=== PATIENT | male | born 1970 | race American Indian/Alaskan Native ===

== ENCOUNTER 2019-07-14 23:27 | Inpatient (IN) | payer OTHER ==
[~2019-07-14] VITALS: Ht 170.2 cm; Wt 86.2 kg
[2019-07-15] MEDS ORDERED: TIOT185 IH (00:04)
[2019-07-15] MEDS ORDERED: ADV250 IH (00:10)
[2019-07-15] MEDS ORDERED: ARIP10TA8 PO (00:10)
[2019-07-15] MEDS ORDERED: MONT10TA21 PO (00:10)
[2019-07-15] MEDS ORDERED: OLAN5TAB5 SL (00:10)
[2019-07-15] MEDS ORDERED: ALBU2.5V2 NEB (00:10)
[2019-07-15] MEDS ORDERED: ONDANSETRON HCL 4 MG/2 ML VIAL IVP ONE (00:15)
[2019-07-15] MEDS ORDERED: SODIUM CHLORIDE 0.9% 1,000 ML IV ONE ×3 (00:15→15:45)
[2019-07-15] MEDS ORDERED: IOVERSOL 350 MG/ML 100 ML VIAL ONE (00:29)
[2019-07-15] MEDS ORDERED: SODIUM CHLORIDE 0.9% 100 ML ONE (00:29)
[2019-07-15] MEDS ORDERED: ACETAMINOPHEN 500 MG TABLET PO ONE (00:30)
[2019-07-15 00:39] LABS: EOSINOPHILS % (AUTO) 0 % (1.0-6.0); LYMPHOCYTES # (AUTO) 0.8 K/uL (1.0-4.8)
[2019-07-15 00:41] LABS: APPEARANCE,URINE CLEAR (CLEAR); BILIRUBIN,URINE NEGATIVE (NEGATIVE); GLUCOSE, URINE (UA) NEGATIVE (NEGATIVE); KETONES,URINE NEGATIVE (NEGATIVE); LEUKOCYTE ESTERASE ,URINE NEGATIVE (NEGATIVE); NITRATE,URINE NEGATIVE (NEGATIVE); OCCULT BLOOD,URINE NEGATIVE (NEGATIVE); PH,URINE 5.5 (5.0-8.0); PROTEIN,URINE TRACE (NEGATIVE); UROBILINOGEN,URINE 0.2 mg/dL (<=1.0)
[2019-07-15 00:42] LABS: BASOPHILS % (AUTO) 0.6 % (0.0-2.0); HEMATOCRIT 41.3 % (41-53); HEMOGLOBIN 13.8 g/dL (13.5-17.5); LYMPHOCYTES % (AUTO) 16.4 % (22.0-44.0); MEAN CORPUSCULAR HEMOGLOBIN 28.5 pg (26.0-34.0); MEAN CORPUSCULAR HGB CONC 33.4 G/dL (31.0-37.0); MEAN CORPUSCULAR VOLUME 86 fL (80-100); MONOCYTES % (AUTO) 20.3 % (2.0-9.0); NEUTROPHILS # (AUTO) 3.2 K/uL (1.8-7.7); NEUTROPHILS % (AUTO) 62.7 % (40.0-70.0); RED BLOOD CELL COUNT(AUTO) 4.83 MIL/uL (4.50-5.90); RED CELL DISTRIBUTION WIDTH 14.1 % (11.5-14.5)
[2019-07-15 00:47] LABS: CALCIUM, TOTAL 9.3 mg/dL (8.8-10.5); CREATININE 1.5 mg/dL (0.60-1.30); POTASSIUM 3.6 mmol/L (3.5-5.1)
[2019-07-15 00:53] LABS: ALBUMIN 3.6 g/dL (3.4-5.0); BILIRUBIN,TOTAL 0.4 mg/dL (0.1-1.0); PLATELET COUNT (AUTO) 113 K/uL (150-450); PLATELET MORPHOLOGY COMMENT GIANT PLTS PRESENT; TOTAL PROTEIN, SERUM 8.3 g/dL (6.4-8.2)
[2019-07-15] MEDS ORDERED: MORPHINE SULFATE 2 MG/ML SYRINGE IVP ONE (01:45)
[2019-07-15] MEDS ORDERED: SODIUM CHLORIDE 0.9% 2,200 ML IV ONE (03:30)
[2019-07-15] MEDS ORDERED: 0.9% SODIUM CHLORIDE 10 ML SYRINGE IVP PRN (03:30)
[2019-07-15] MEDS ORDERED: ONDANSETRON HCL 4 MG/2 ML VIAL IVP PRN ×3 (03:30→15:45)
[2019-07-15 04:10] LABS: INFLUENZA TYPE A POSITIVE FOR TYPE A (NEGATIVE)
[2019-07-15 04:11] LABS: INFLUENZA TYPE B NEGATIVE FOR TYPE B (NEGATIVE)
[2019-07-15 04:42] VITALS: BP 127/74
[2019-07-15] MEDS: ACETAMINOPHEN 325 MG TABLET PO PRN ×3 (07:45→20:16)
[2019-07-15 07:48] VITALS: BP 134/80
[2019-07-15] MEDS ORDERED: OSELTAMIVIR PHOSPHATE 75 MG CAPSULE PO ONE (14:45)
[2019-07-15 15:20] VITALS: BP 123/86
[2019-07-15] MEDS ORDERED: ALBUTEROL SULFATE 2.5 MG/0.5 ML NEB SOLUTION NEB PRN ×2 (15:45)
[2019-07-15] MEDS ORDERED: MAGNESIUM HYDROXIDE SUSPENSION 30 ML UDCUP PO PRN (15:45)
[2019-07-15] MEDS ORDERED: IPRATROPIUM BROMIDE 0.5 MG/2.5 ML NEB SOLUTION NEB PRN ×2 (15:45)
[2019-07-15] MEDS ORDERED: BISACODYL 10 MG RECTAL RECTAL SUPPOSITORY PR PRN (15:45)
[2019-07-15] MEDS: BENZONATATE 100 MG CAPSULE PO SCH ×2 (16:02→20:15)
[2019-07-15] MEDS: METOCLOPRAMIDE HCL 5 MG/ML 2 ML VIAL IVP PRN (16:05)
[2019-07-15] MEDS: HEPARIN SODIUM,PORCINE 5,000 UNITS/ML VIAL SQ SCH (16:06)
[2019-07-15] MEDS: LEVOFLOXACIN 750 MG/D5% WATER 150 ML IV SCH (16:34)
[2019-07-15 20:00] VITALS: BP 112/59
[2019-07-15] MEDS: IPRATROPIUM BROMIDE 0.5 MG/2.5 ML NEB SOLUTION NEB SCH (20:00)
[2019-07-15] MEDS: ALBUTEROL SULFATE 2.5 MG/0.5 ML NEB SOLUTION NEB SCH (20:00)
[2019-07-15] MEDS: DOCUSATE SODIUM 100 MG CAPSULE PO SCH (20:03)
[2019-07-15] MEDS: GuaiFENesin SR 600 MG ER TABLET PO SCH (20:15)
[2019-07-15] MEDS: OSELTAMIVIR PHOSPHATE 75 MG CAPSULE PO SCH (20:15)
[2019-07-16] MEDS: HEPARIN SODIUM,PORCINE 5,000 UNITS/ML VIAL SQ SCH ×3 (00:06→16:30)
[2019-07-16] MEDS: IPRATROPIUM BROMIDE 0.5 MG/2.5 ML NEB SOLUTION NEB SCH ×2 (01:47→02:24)
[2019-07-16] MEDS: ALBUTEROL SULFATE 2.5 MG/0.5 ML NEB SOLUTION NEB SCH ×2 (01:47→02:25)
[2019-07-16] MEDS: MORPHINE SULFATE 2 MG/ML SYRINGE IVP PRN ×3 (01:57→14:33)
[2019-07-16 04:00] VITALS: BP 116/70
[2019-07-16] MEDS: ACETAMINOPHEN 325 MG TABLET PO PRN (04:12)
[2019-07-16] MEDS: METOCLOPRAMIDE HCL 5 MG/ML 2 ML VIAL IVP PRN (06:02)
[2019-07-16 08:04] LABS: BASOPHILS % (AUTO) 0.5 % (0.0-2.0); EOSINOPHILS % (AUTO) 0 % (1.0-6.0); HEMATOCRIT 36.3 % (41-53); HEMOGLOBIN 12.4 g/dL (13.5-17.5); LYMPHOCYTES % (AUTO) 23.8 % (22.0-44.0); MEAN CORPUSCULAR VOLUME 85 fL (80-100); MONOCYTES # (AUTO) 0.7 K/uL (0.1-1.0); MONOCYTES % (AUTO) 16.2 % (2.0-9.0); NEUTROPHILS # (AUTO) 2.5 K/uL (1.8-7.7); NEUTROPHILS % (AUTO) 59.5 % (40.0-70.0); PLATELET COUNT (AUTO) 97 K/uL (150-450); RED BLOOD CELL COUNT(AUTO) 4.26 MIL/uL (4.50-5.90); RED CELL DISTRIBUTION WIDTH 13.9 % (11.5-14.5)
[2019-07-16 08:12] LABS: CALCIUM, TOTAL 8.1 mg/dL (8.8-10.5); CREATININE 1.29 mg/dL (0.60-1.30); POTASSIUM 3.1 mmol/L (3.5-5.1)
[2019-07-16] MEDS: BENZONATATE 100 MG CAPSULE PO SCH ×3 (08:41→20:40)
[2019-07-16] MEDS: OSELTAMIVIR PHOSPHATE 75 MG CAPSULE PO SCH ×2 (08:41→20:40)
[2019-07-16] MEDS: PANTOPRAZOLE SODIUM 40 MG DR TABLET PO SCH (08:41)
[2019-07-16] MEDS: DOCUSATE SODIUM 100 MG CAPSULE PO SCH ×2 (08:41→20:40)
[2019-07-16] MEDS: ARIPiprazole 10 MG TABLET PO SCH ×3 (08:42→20:40)
[2019-07-16] MEDS: OLANZapine 10 MG TABLET PO SCH ×2 (08:42→20:40)
[2019-07-16] MEDS: GuaiFENesin SR 600 MG ER TABLET PO SCH ×2 (08:42→20:40)
[2019-07-16] MEDS ORDERED: POTASSIUM CHL 10 MEQ/WATER 50 ML IV PRN (11:00)
[2019-07-16] MEDS: POTASSIUM CHLORIDE 20 MEQ ER TABLET PO PRN (14:34)
[2019-07-16] MEDS ORDERED: ONDANSETRON HCL 4 MG/2 ML VIAL IVP PRN (15:45)
[2019-07-16] MEDS: LEVOFLOXACIN 750 MG/D5% WATER 150 ML IV SCH (16:30)
[2019-07-16 19:24] VITALS: BP 114/74
[2019-07-17 00:11] VITALS: BP 129/83
[2019-07-17] MEDS: ACETAMINOPHEN 325 MG TABLET PO PRN ×2 (00:18→08:21)
[2019-07-17 03:28] VITALS: BP 129/61
[2019-07-17 07:53] VITALS: BP 112/72
[2019-07-17 07:54] LABS: BASOPHILS % (AUTO) 0.2 % (0.0-2.0); EOSINOPHILS % (AUTO) 0.1 % (1.0-6.0); HEMATOCRIT 37.4 % (41-53); HEMOGLOBIN 12.8 g/dL (13.5-17.5); LYMPHOCYTES # (AUTO) 0.9 K/uL (1.0-4.8); LYMPHOCYTES % (AUTO) 31.4 % (22.0-44.0); MEAN CORPUSCULAR HEMOGLOBIN 29.1 pg (26.0-34.0); MEAN CORPUSCULAR HGB CONC 34.2 G/dL (31.0-37.0); MEAN CORPUSCULAR VOLUME 85 fL (80-100); MONOCYTES # (AUTO) 0.3 K/uL (0.1-1.0); MONOCYTES % (AUTO) 11.2 % (2.0-9.0); NEUTROPHILS # (AUTO) 1.6 K/uL (1.8-7.7); NEUTROPHILS % (AUTO) 57.1 % (40.0-70.0); PLATELET COUNT (AUTO) 88 K/uL (150-450); RED BLOOD CELL COUNT(AUTO) 4.38 MIL/uL (4.50-5.90); RED CELL DISTRIBUTION WIDTH 13.9 % (11.5-14.5)
[2019-07-17] MEDS: IPRATROPIUM BROMIDE 0.5 MG/2.5 ML NEB SOLUTION NEB SCH ×3 (08:00→20:01)
[2019-07-17] MEDS: HEPARIN SODIUM,PORCINE 5,000 UNITS/ML VIAL SQ SCH ×3 (08:00→15:01)
[2019-07-17] MEDS: ALBUTEROL SULFATE 2.5 MG/0.5 ML NEB SOLUTION NEB SCH ×3 (08:00→20:01)
[2019-07-17 08:01] LABS: PLATELET MORPHOLOGY COMMENT GIANT PLTS PRESENT
[2019-07-17 08:07] LABS: CALCIUM, TOTAL 8.4 mg/dL (8.8-10.5); CREATININE 1.34 mg/dL (0.60-1.30); POTASSIUM 3.7 mmol/L (3.5-5.1)
[2019-07-17] MEDS: PANTOPRAZOLE SODIUM 40 MG DR TABLET PO SCH (08:21)
[2019-07-17] MEDS: OLANZapine 10 MG TABLET PO SCH ×2 (08:21→20:26)
[2019-07-17] MEDS: BENZONATATE 100 MG CAPSULE PO SCH ×3 (08:22→20:25)
[2019-07-17] MEDS: OSELTAMIVIR PHOSPHATE 75 MG CAPSULE PO SCH ×2 (08:22→20:26)
[2019-07-17] MEDS: GuaiFENesin SR 600 MG ER TABLET PO SCH ×2 (08:22→20:26)
[2019-07-17] MEDS: ARIPiprazole 10 MG TABLET PO SCH ×3 (08:23→20:25)
[2019-07-17] MEDS: DOCUSATE SODIUM 100 MG CAPSULE PO SCH ×2 (08:23→20:26)
[2019-07-17] MEDS ORDERED: DOXYCYCLINE HYCLATE 100 MG CAPSULE PO SCH (12:30)
[2019-07-17] MEDS: LEVOFLOXACIN 750 MG/D5% WATER 150 ML IV SCH (15:03)
[2019-07-17] MEDS: HYDROCODONE/ACETAMINOPHEN 5-325 MG TABLET PO PRN (15:08)
[2019-07-17 16:26] VITALS: BP 101/58
[2019-07-17] MEDS ORDERED: SODIUM CHLORIDE 0.9% 1,000 ML ONE (17:31)
[2019-07-17 20:29] VITALS: BP 116/62
[2019-07-17 23:30] VITALS: BP 141/77
[2019-07-18] MEDS: HEPARIN SODIUM,PORCINE 5,000 UNITS/ML VIAL SQ SCH ×3 (00:21→14:53)
[2019-07-18] MEDS: ACETAMINOPHEN 325 MG TABLET PO PRN ×2 (00:22→08:51)
[2019-07-18] MEDS: IPRATROPIUM BROMIDE 0.5 MG/2.5 ML NEB SOLUTION NEB SCH ×4 (02:00→20:00)
[2019-07-18] MEDS: ALBUTEROL SULFATE 2.5 MG/0.5 ML NEB SOLUTION NEB SCH ×4 (02:01→20:00)
[2019-07-18 07:47] LABS: BASOPHILS % (AUTO) 0.5 % (0.0-2.0); EOSINOPHILS % (AUTO) 0 % (1.0-6.0); HEMATOCRIT 38.1 % (41-53); HEMOGLOBIN 12.9 g/dL (13.5-17.5); LYMPHOCYTES # (AUTO) 0.7 K/uL (1.0-4.8); LYMPHOCYTES % (AUTO) 25.5 % (22.0-44.0); MEAN CORPUSCULAR HEMOGLOBIN 28.9 pg (26.0-34.0); MEAN CORPUSCULAR HGB CONC 33.9 G/dL (31.0-37.0); MEAN CORPUSCULAR VOLUME 85 fL (80-100); MONOCYTES # (AUTO) 0.3 K/uL (0.1-1.0); MONOCYTES % (AUTO) 10.1 % (2.0-9.0); NEUTROPHILS # (AUTO) 1.7 K/uL (1.8-7.7); NEUTROPHILS % (AUTO) 63.9 % (40.0-70.0); PLATELET COUNT (AUTO) 81 K/uL (150-450); RED BLOOD CELL COUNT(AUTO) 4.47 MIL/uL (4.50-5.90); RED CELL DISTRIBUTION WIDTH 14.1 % (11.5-14.5)
[2019-07-18 08:14] LABS: BILIRUBIN,TOTAL 0.4 mg/dL (0.1-1.0); CALCIUM, TOTAL 8.5 mg/dL (8.8-10.5); CREATININE 1.37 mg/dL (0.60-1.30); POTASSIUM 3.3 mmol/L (3.5-5.1); TOTAL PROTEIN, SERUM 7.2 g/dL (6.4-8.2)
[2019-07-18] MEDS: OLANZapine 10 MG TABLET PO SCH ×2 (08:50→20:55)
[2019-07-18] MEDS: PANTOPRAZOLE SODIUM 40 MG DR TABLET PO SCH (08:50)
[2019-07-18] MEDS: GuaiFENesin SR 600 MG ER TABLET PO SCH ×2 (08:50→20:56)
[2019-07-18] MEDS: OSELTAMIVIR PHOSPHATE 75 MG CAPSULE PO SCH ×2 (08:50→20:56)
[2019-07-18] MEDS: ARIPiprazole 10 MG TABLET PO SCH ×3 (08:51→20:55)
[2019-07-18] MEDS: BENZONATATE 100 MG CAPSULE PO SCH ×3 (08:51→20:56)
[2019-07-18] MEDS: POTASSIUM CHLORIDE 20 MEQ ER TABLET PO PRN (08:51)
[2019-07-18] MEDS: DOCUSATE SODIUM 100 MG CAPSULE PO SCH ×2 (08:54→20:56)
[2019-07-18] MEDS ORDERED: SODIUM CHLORIDE 0.9% 1,000 ML IV ONE (10:00)
[2019-07-18] MEDS ORDERED: *CLINICAL-LEVOFLOXACIN IVPB DOSING CLINICAL ONE (10:00)
[2019-07-18] MEDS ORDERED: LEVOFLOXACIN 750 MG/D5% WATER 150 ML IV SCH (16:00)
[2019-07-18 16:02] VITALS: BP 117/63
[2019-07-18 19:42] VITALS: BP 126/76
[2019-07-19] MEDS: HEPARIN SODIUM,PORCINE 5,000 UNITS/ML VIAL SQ SCH ×3 (00:07→16:00)
[2019-07-19] MEDS: ZOLPIDEM TARTRATE 5 MG TABLET PO PRN ×2 (01:06→23:54)
[2019-07-19] MEDS: ALBUTEROL SULFATE 2.5 MG/0.5 ML NEB SOLUTION NEB SCH ×4 (02:00→20:00)
[2019-07-19] MEDS: IPRATROPIUM BROMIDE 0.5 MG/2.5 ML NEB SOLUTION NEB SCH ×4 (02:00→20:00)
[2019-07-19 04:23] VITALS: BP 130/84
[2019-07-19] MEDS ORDERED: SODIUM CHLORIDE 0.9% 500 ML IV ONE (06:44)
[2019-07-19] MEDS: MORPHINE SULFATE 2 MG/ML SYRINGE IVP PRN (06:56)
[2019-07-19 07:52] LABS: BASOPHILS % (AUTO) 0.1 % (0.0-2.0); EOSINOPHILS % (AUTO) 0 % (1.0-6.0); HEMATOCRIT 37.9 % (41-53); LYMPHOCYTES # (AUTO) 1.1 K/uL (1.0-4.8); LYMPHOCYTES % (AUTO) 35.9 % (22.0-44.0); MEAN CORPUSCULAR HEMOGLOBIN 28.8 pg (26.0-34.0); MEAN CORPUSCULAR HGB CONC 34.4 G/dL (31.0-37.0); MEAN CORPUSCULAR VOLUME 84 fL (80-100); MONOCYTES # (AUTO) 0.5 K/uL (0.1-1.0); MONOCYTES % (AUTO) 15.7 % (2.0-9.0); NEUTROPHILS # (AUTO) 1.4 K/uL (1.8-7.7); NEUTROPHILS % (AUTO) 48.3 % (40.0-70.0); PLATELET COUNT (AUTO) 88 K/uL (150-450); RED BLOOD CELL COUNT(AUTO) 4.52 MIL/uL (4.50-5.90); RED CELL DISTRIBUTION WIDTH 14.3 % (11.5-14.5)
[2019-07-19 07:59] LABS: PLATELET MORPHOLOGY COMMENT GIANT PLTS PRESENT
[2019-07-19 08:09] LABS: ANION GAP 10 mmol/L (8-16); CALCIUM, TOTAL 8.8 mg/dL (8.8-10.5); CARBON DIOXIDE 25 mmol/L (22-29); CHLORIDE 106 mmol/L (98-107); CREATININE 1.18 mg/dL (0.60-1.30); GLOMERULAR FILTR. RATE CALC > 60 mL/min (>60); GLUCOSE,RANDOM 92 mg/dL (70-110); POTASSIUM 3.7 mmol/L (3.5-5.1); SODIUM SERUM 141 mmol/L (136-145); UREA NITROGEN, BLOOD 8 mg/dL (7-18)
[2019-07-19 08:16] VITALS: BP 133/72
[2019-07-19] MEDS: DOCUSATE SODIUM 100 MG CAPSULE PO SCH ×2 (13:09→20:06)
[2019-07-19] MEDS: GuaiFENesin SR 600 MG ER TABLET PO SCH ×2 (13:10→20:06)
[2019-07-19] MEDS: OLANZapine 10 MG TABLET PO SCH ×2 (13:10→20:06)
[2019-07-19] MEDS: BENZONATATE 100 MG CAPSULE PO SCH ×3 (13:10→20:06)
[2019-07-19] MEDS: OSELTAMIVIR PHOSPHATE 75 MG CAPSULE PO SCH ×2 (13:10→20:06)
[2019-07-19] MEDS: PANTOPRAZOLE SODIUM 40 MG DR TABLET PO SCH (13:10)
[2019-07-19] MEDS: ARIPiprazole 10 MG TABLET PO SCH ×3 (13:11→20:06)
[2019-07-19] MEDS ORDERED: LORazepam 2 MG/ML VIAL IVP PRN (14:15)
[2019-07-19 16:07] VITALS: BP 143/78
[2019-07-19 20:21] VITALS: BP 134/85
[2019-07-19] MEDS: LORazepam 2 MG/ML VIAL IM PRN (23:54)
[2019-07-20] MEDS: ALBUTEROL SULFATE 2.5 MG/0.5 ML NEB SOLUTION NEB SCH ×4 (02:00→20:52)
[2019-07-20] MEDS: IPRATROPIUM BROMIDE 0.5 MG/2.5 ML NEB SOLUTION NEB SCH ×4 (02:00→20:52)
[2019-07-20] MEDS: HALOPERIDOL LACTATE 5 MG/ML VIAL IM PRN (02:11)
[2019-07-20] MEDS ORDERED: LORazepam 2 MG/ML VIAL IM PRN (06:15)
[2019-07-20] MEDS: GuaiFENesin SR 600 MG ER TABLET PO SCH ×2 (11:26→20:18)
[2019-07-20] MEDS: DOCUSATE SODIUM 100 MG CAPSULE PO SCH ×2 (11:26→20:18)
[2019-07-20] MEDS: OLANZapine 10 MG TABLET PO SCH ×2 (11:26→20:18)
[2019-07-20] MEDS: PANTOPRAZOLE SODIUM 40 MG DR TABLET PO SCH (11:26)
[2019-07-20] MEDS: BENZONATATE 100 MG CAPSULE PO SCH ×3 (11:27→20:18)
[2019-07-20] MEDS: ARIPiprazole 10 MG TABLET PO SCH ×3 (11:27→20:17)
[2019-07-20] MEDS: HEPARIN SODIUM,PORCINE 5,000 UNITS/ML VIAL SQ SCH ×3 (11:27→16:00)
[2019-07-20] MEDS: OSELTAMIVIR PHOSPHATE 75 MG CAPSULE PO SCH (11:27)
[2019-07-20] MEDS: HYDROCODONE/ACETAMINOPHEN 5-325 MG TABLET PO PRN (11:46)
[2019-07-20 15:05] VITALS: BP 113/65
[2019-07-20 20:01] VITALS: BP 110/67
[2019-07-20] MEDS: TraZODone HCL 100 MG TABLET PO SCH (20:18)
[2019-07-21] MEDS: ALBUTEROL SULFATE 2.5 MG/0.5 ML NEB SOLUTION NEB SCH ×4 (02:36→20:00)
[2019-07-21] MEDS: IPRATROPIUM BROMIDE 0.5 MG/2.5 ML NEB SOLUTION NEB SCH ×4 (02:36→20:00)
[2019-07-21] MEDS: BENZONATATE 100 MG CAPSULE PO SCH ×3 (07:52→20:16)
[2019-07-21] MEDS: ARIPiprazole 10 MG TABLET PO SCH ×3 (07:52→20:16)
[2019-07-21] MEDS: PANTOPRAZOLE SODIUM 40 MG DR TABLET PO SCH (07:52)
[2019-07-21] MEDS: HEPARIN SODIUM,PORCINE 5,000 UNITS/ML VIAL SQ SCH ×4 (07:52→23:56)
[2019-07-21] MEDS: GuaiFENesin SR 600 MG ER TABLET PO SCH ×2 (07:52→20:16)
[2019-07-21] MEDS: DOCUSATE SODIUM 100 MG CAPSULE PO SCH ×2 (07:52→20:16)
[2019-07-21] MEDS: OLANZapine 10 MG TABLET PO SCH ×2 (07:52→20:16)
[2019-07-21 08:28] VITALS: BP 119/75
[2019-07-21] MEDS: OSELTAMIVIR PHOSPHATE 75 MG CAPSULE PO SCH ×2 (12:22→20:16)
[2019-07-21 16:00] VITALS: BP 114/68
[2019-07-21 19:55] VITALS: BP 115/60
[2019-07-21] MEDS: TraZODone HCL 100 MG TABLET PO SCH (20:16)
[2019-07-22] MEDS: IPRATROPIUM BROMIDE 0.5 MG/2.5 ML NEB SOLUTION NEB SCH ×4 (02:00→20:00)
[2019-07-22] MEDS: ALBUTEROL SULFATE 2.5 MG/0.5 ML NEB SOLUTION NEB SCH ×4 (02:00→20:00)
[2019-07-22 04:13] VITALS: BP 128/88
[2019-07-22 07:55] VITALS: BP 97/63
[2019-07-22] MEDS: HEPARIN SODIUM,PORCINE 5,000 UNITS/ML VIAL SQ SCH ×2 (09:07→16:49)
[2019-07-22] MEDS: ARIPiprazole 10 MG TABLET PO SCH ×3 (09:07→21:22)
[2019-07-22] MEDS: BENZONATATE 100 MG CAPSULE PO SCH ×3 (09:07→21:22)
[2019-07-22] MEDS: DOCUSATE SODIUM 100 MG CAPSULE PO SCH ×2 (09:07→21:22)
[2019-07-22] MEDS: GuaiFENesin SR 600 MG ER TABLET PO SCH ×2 (09:08→21:22)
[2019-07-22] MEDS: OLANZapine 10 MG TABLET PO SCH ×2 (09:08→21:21)
[2019-07-22] MEDS: PANTOPRAZOLE SODIUM 40 MG DR TABLET PO SCH (09:08)
[2019-07-22] MEDS: OSELTAMIVIR PHOSPHATE 75 MG CAPSULE PO SCH ×2 (10:12→21:22)
[2019-07-22 15:43] VITALS: BP 117/75
[2019-07-22 20:20] VITALS: BP 125/75
[2019-07-22] MEDS: HYDROCODONE/ACETAMINOPHEN 5-325 MG TABLET PO PRN (20:28)
[2019-07-22] MEDS: TraZODone HCL 100 MG TABLET PO SCH (21:22)
[2019-07-23] MEDS: HEPARIN SODIUM,PORCINE 5,000 UNITS/ML VIAL SQ SCH ×4 (00:12→23:48)
[2019-07-23] MEDS: ALBUTEROL SULFATE 2.5 MG/0.5 ML NEB SOLUTION NEB SCH ×4 (02:00→20:00)
[2019-07-23] MEDS: IPRATROPIUM BROMIDE 0.5 MG/2.5 ML NEB SOLUTION NEB SCH ×4 (02:00→20:00)
[2019-07-23 05:00] VITALS: BP 124/77
[2019-07-23 07:23] VITALS: BP 120/56
[2019-07-23] MEDS: BENZONATATE 100 MG CAPSULE PO SCH ×3 (08:09→20:48)
[2019-07-23] MEDS: OLANZapine 10 MG TABLET PO SCH ×2 (08:09→20:48)
[2019-07-23] MEDS: ARIPiprazole 10 MG TABLET PO SCH ×3 (08:09→20:49)
[2019-07-23] MEDS: GuaiFENesin SR 600 MG ER TABLET PO SCH ×2 (08:09→20:48)
[2019-07-23] MEDS: DOCUSATE SODIUM 100 MG CAPSULE PO SCH ×2 (08:09→20:48)
[2019-07-23] MEDS: PANTOPRAZOLE SODIUM 40 MG DR TABLET PO SCH (08:10)
[2019-07-23] MEDS: OSELTAMIVIR PHOSPHATE 75 MG CAPSULE PO SCH ×2 (11:05→20:49)
[2019-07-23 15:44] VITALS: BP 124/76
[2019-07-23 19:47] VITALS: BP 127/83
[2019-07-23] MEDS: TraZODone HCL 100 MG TABLET PO SCH (20:48)
[2019-07-24] MEDS: ALBUTEROL SULFATE 2.5 MG/0.5 ML NEB SOLUTION NEB SCH ×4 (02:00→20:00)
[2019-07-24] MEDS: IPRATROPIUM BROMIDE 0.5 MG/2.5 ML NEB SOLUTION NEB SCH ×4 (02:00→20:00)
[2019-07-24 04:00] VITALS: BP 131/91
[2019-07-24] MEDS: LORazepam 2 MG/ML VIAL IM PRN (04:33)
[2019-07-24] MEDS: HALOPERIDOL LACTATE 5 MG/ML VIAL IM PRN (06:52)
[2019-07-24 08:07] VITALS: BP 125/92
[2019-07-24] MEDS: BENZONATATE 100 MG CAPSULE PO SCH ×3 (08:23→21:12)
[2019-07-24] MEDS: HEPARIN SODIUM,PORCINE 5,000 UNITS/ML VIAL SQ SCH ×3 (08:23→23:13)
[2019-07-24] MEDS: OSELTAMIVIR PHOSPHATE 75 MG CAPSULE PO SCH ×2 (08:23→21:12)
[2019-07-24] MEDS: OLANZapine 10 MG TABLET PO SCH (08:23)
[2019-07-24] MEDS: DOCUSATE SODIUM 100 MG CAPSULE PO SCH ×2 (08:23→21:12)
[2019-07-24] MEDS: ARIPiprazole 10 MG TABLET PO SCH (08:23)
[2019-07-24] MEDS: GuaiFENesin SR 600 MG ER TABLET PO SCH ×2 (08:23→21:12)
[2019-07-24] MEDS: PANTOPRAZOLE SODIUM 40 MG DR TABLET PO SCH (08:27)
[2019-07-24 15:22] VITALS: BP 106/73
[2019-07-24 20:17] VITALS: BP 150/94
[2019-07-24] MEDS: TraZODone HCL 100 MG TABLET PO SCH (21:12)
[2019-07-24] MEDS: OLANZapine 7.5 MG TABLET PO SCH (21:13)
[2019-07-25] MEDS: IPRATROPIUM BROMIDE 0.5 MG/2.5 ML NEB SOLUTION NEB SCH ×4 (02:00→20:00)
[2019-07-25] MEDS: ALBUTEROL SULFATE 2.5 MG/0.5 ML NEB SOLUTION NEB SCH ×4 (02:00→20:00)
[2019-07-25 04:20] VITALS: BP 133/76
[2019-07-25 07:29] VITALS: BP 130/62
[2019-07-25] MEDS: HEPARIN SODIUM,PORCINE 5,000 UNITS/ML VIAL SQ SCH ×3 (08:00→23:05)
[2019-07-25] MEDS: GuaiFENesin SR 600 MG ER TABLET PO SCH ×2 (08:55→20:43)
[2019-07-25] MEDS: DOCUSATE SODIUM 100 MG CAPSULE PO SCH ×2 (08:56→20:43)
[2019-07-25] MEDS: OLANZapine 7.5 MG TABLET PO SCH ×2 (08:56→20:44)
[2019-07-25] MEDS: OSELTAMIVIR PHOSPHATE 75 MG CAPSULE PO SCH ×2 (08:56→20:44)
[2019-07-25] MEDS: BENZONATATE 100 MG CAPSULE PO SCH ×3 (08:56→20:44)
[2019-07-25] MEDS: PANTOPRAZOLE SODIUM 40 MG DR TABLET PO SCH (08:56)
[2019-07-25 15:24] VITALS: BP 103/56
[2019-07-25] MEDS: TraZODone HCL 100 MG TABLET PO SCH (20:44)
[2019-07-25 20:50] VITALS: BP 108/66
[2019-07-26] MEDS: ALBUTEROL SULFATE 2.5 MG/0.5 ML NEB SOLUTION NEB SCH ×4 (02:00→20:00)
[2019-07-26] MEDS: IPRATROPIUM BROMIDE 0.5 MG/2.5 ML NEB SOLUTION NEB SCH ×4 (02:00→20:00)
[2019-07-26 04:42] VITALS: BP 116/56
[2019-07-26] MEDS: HEPARIN SODIUM,PORCINE 5,000 UNITS/ML VIAL SQ SCH ×3 (08:00→15:21)
[2019-07-26 08:31] VITALS: BP 113/88
[2019-07-26] MEDS: DOCUSATE SODIUM 100 MG CAPSULE PO SCH ×2 (08:44→20:47)
[2019-07-26] MEDS: GuaiFENesin SR 600 MG ER TABLET PO SCH ×2 (08:44→20:46)
[2019-07-26] MEDS: OSELTAMIVIR PHOSPHATE 75 MG CAPSULE PO SCH ×2 (08:44→20:46)
[2019-07-26] MEDS: OLANZapine 7.5 MG TABLET PO SCH ×2 (08:44→20:47)
[2019-07-26] MEDS: PANTOPRAZOLE SODIUM 40 MG DR TABLET PO SCH (08:44)
[2019-07-26] MEDS: BENZONATATE 100 MG CAPSULE PO SCH ×3 (08:44→20:46)
[2019-07-26 09:11] LABS: BASOPHILS % (AUTO) 0.9 % (0.0-2.0); EOSINOPHILS % (AUTO) 0.5 % (1.0-6.0); LYMPHOCYTES % (AUTO) 27.8 % (22.0-44.0); MEAN CORPUSCULAR HEMOGLOBIN 29.2 pg (26.0-34.0); MEAN CORPUSCULAR HGB CONC 34.1 G/dL (31.0-37.0); MEAN CORPUSCULAR VOLUME 86 fL (80-100); MONOCYTES # (AUTO) 0.6 K/uL (0.1-1.0); MONOCYTES % (AUTO) 8.6 % (2.0-9.0); NEUTROPHILS # (AUTO) 4.5 K/uL (1.8-7.7); NEUTROPHILS % (AUTO) 62.2 % (40.0-70.0); PLATELET COUNT (AUTO) 318 K/uL (150-450); RED BLOOD CELL COUNT(AUTO) 4.79 MIL/uL (4.50-5.90); RED CELL DISTRIBUTION WIDTH 14.5 % (11.5-14.5)
[2019-07-26 09:21] LABS: CALCIUM, TOTAL 9.2 mg/dL (8.8-10.5); CREATININE 1.41 mg/dL (0.60-1.30); POTASSIUM 3.7 mmol/L (3.5-5.1)
[2019-07-26 09:27] LABS: ALBUMIN 3.4 g/dL (3.4-5.0); BILIRUBIN,TOTAL 0.6 mg/dL (0.1-1.0); TOTAL PROTEIN, SERUM 8.6 g/dL (6.4-8.2)
[2019-07-26 16:37] VITALS: BP 107/63
[2019-07-26] MEDS ORDERED: INFLUENZA VIRUS VACCINE QVS 2019-20 (3YR+)/PF 60 MCG/0.5 ML SYRINGE IM ONE (18:15)
[2019-07-26 20:30] VITALS: BP 115/71
[2019-07-26] MEDS: HYDROCODONE/ACETAMINOPHEN 5-325 MG TABLET PO PRN (20:47)
[2019-07-26] MEDS: TraZODone HCL 100 MG TABLET PO SCH (20:47)
[2019-07-27] MEDS: IPRATROPIUM BROMIDE 0.5 MG/2.5 ML NEB SOLUTION NEB SCH ×4 (02:00→20:00)
[2019-07-27] MEDS: ALBUTEROL SULFATE 2.5 MG/0.5 ML NEB SOLUTION NEB SCH ×4 (02:00→20:00)
[2019-07-27 04:48] VITALS: BP 114/79
[2019-07-27] MEDS ORDERED: LORazepam 2 MG/ML VIAL IM ONE (05:45)
[2019-07-27 07:19] LABS: EOSINOPHILS % (AUTO) 0.4 % (1.0-6.0); HEMATOCRIT 40.1 % (41-53); HEMOGLOBIN 13.5 g/dL (13.5-17.5); LYMPHOCYTES # (AUTO) 1.7 K/uL (1.0-4.8); LYMPHOCYTES % (AUTO) 34.6 % (22.0-44.0); MEAN CORPUSCULAR HEMOGLOBIN 29.1 pg (26.0-34.0); MEAN CORPUSCULAR HGB CONC 33.7 G/dL (31.0-37.0); MEAN CORPUSCULAR VOLUME 86 fL (80-100); MONOCYTES # (AUTO) 0.6 K/uL (0.1-1.0); MONOCYTES % (AUTO) 12.8 % (2.0-9.0); NEUTROPHILS # (AUTO) 2.5 K/uL (1.8-7.7); NEUTROPHILS % (AUTO) 51.2 % (40.0-70.0); PLATELET COUNT (AUTO) 280 K/uL (150-450); RED BLOOD CELL COUNT(AUTO) 4.65 MIL/uL (4.50-5.90); RED CELL DISTRIBUTION WIDTH 14.4 % (11.5-14.5)
[2019-07-27 07:35] LABS: ALBUMIN 3.2 g/dL (3.4-5.0); BILIRUBIN,TOTAL 0.4 mg/dL (0.1-1.0); CALCIUM, TOTAL 8.7 mg/dL (8.8-10.5); CREATININE 1.28 mg/dL (0.60-1.30); POTASSIUM 3.9 mmol/L (3.5-5.1); TOTAL PROTEIN, SERUM 8.1 g/dL (6.4-8.2)
[2019-07-27 07:47] VITALS: BP 108/85
[2019-07-27] MEDS: DOCUSATE SODIUM 100 MG CAPSULE PO SCH ×2 (09:07→20:21)
[2019-07-27] MEDS: HEPARIN SODIUM,PORCINE 5,000 UNITS/ML VIAL SQ SCH ×3 (09:07→17:05)
[2019-07-27] MEDS: PANTOPRAZOLE SODIUM 40 MG DR TABLET PO SCH (09:08)
[2019-07-27] MEDS: OSELTAMIVIR PHOSPHATE 75 MG CAPSULE PO SCH ×2 (09:08→20:21)
[2019-07-27] MEDS: BENZONATATE 100 MG CAPSULE PO SCH ×3 (09:08→20:22)
[2019-07-27] MEDS: GuaiFENesin SR 600 MG ER TABLET PO SCH ×2 (09:08→20:21)
[2019-07-27] MEDS: OLANZapine 7.5 MG TABLET PO SCH ×2 (09:09→20:21)
[2019-07-27 11:55] VITALS: BP 122/86
[2019-07-27 16:45] VITALS: BP 111/61
[2019-07-27 20:00] VITALS: BP 111/69
[2019-07-27] MEDS: TraZODone HCL 100 MG TABLET PO SCH (20:22)
[2019-07-28] MEDS: HEPARIN SODIUM,PORCINE 5,000 UNITS/ML VIAL SQ SCH ×3 (01:03→16:16)
[2019-07-28] MEDS: ALBUTEROL SULFATE 2.5 MG/0.5 ML NEB SOLUTION NEB SCH ×4 (02:00→20:00)
[2019-07-28] MEDS: IPRATROPIUM BROMIDE 0.5 MG/2.5 ML NEB SOLUTION NEB SCH ×4 (02:00→20:00)
[2019-07-28 04:46] VITALS: BP 116/72
[2019-07-28 07:30] LABS: BASOPHILS % (AUTO) 0.6 % (0.0-2.0); EOSINOPHILS % (AUTO) 1.4 % (1.0-6.0); HEMATOCRIT 40.2 % (41-53); HEMOGLOBIN 13.6 g/dL (13.5-17.5); LYMPHOCYTES # (AUTO) 1.7 K/uL (1.0-4.8); LYMPHOCYTES % (AUTO) 38.2 % (22.0-44.0); MEAN CORPUSCULAR HEMOGLOBIN 28.8 pg (26.0-34.0); MEAN CORPUSCULAR HGB CONC 33.8 G/dL (31.0-37.0); MEAN CORPUSCULAR VOLUME 85 fL (80-100); MONOCYTES # (AUTO) 0.5 K/uL (0.1-1.0); MONOCYTES % (AUTO) 11.2 % (2.0-9.0); NEUTROPHILS # (AUTO) 2.2 K/uL (1.8-7.7); NEUTROPHILS % (AUTO) 48.6 % (40.0-70.0); PLATELET COUNT (AUTO) 306 K/uL (150-450); RED CELL DISTRIBUTION WIDTH 14.1 % (11.5-14.5)
[2019-07-28 07:43] LABS: ALANINE AMINOTRANSFERASE 56 U/L (12-78); ALBUMIN 3.1 g/dL (3.4-5.0); ALKALINE PHOSPHATASE 63 U/L (46-116); ANION GAP 7 mmol/L (8-16); ASPARTATE AMINOTRANSFERASE 26 U/L (15-37); BILIRUBIN,TOTAL 0.4 mg/dL (0.1-1.0); CALCIUM, TOTAL 9.2 mg/dL (8.8-10.5); CARBON DIOXIDE 28 mmol/L (22-29); CHLORIDE 105 mmol/L (98-107); CREATININE 1.19 mg/dL (0.60-1.30); GLOMERULAR FILTR. RATE CALC > 60 mL/min (>60); GLUCOSE,RANDOM 102 mg/dL (70-110); POTASSIUM 4.1 mmol/L (3.5-5.1); SODIUM SERUM 140 mmol/L (136-145); TOTAL PROTEIN, SERUM 7.9 g/dL (6.4-8.2); UREA NITROGEN, BLOOD 20 mg/dL (7-18)
[2019-07-28 07:46] VITALS: BP 136/77
[2019-07-28] MEDS: OLANZapine 7.5 MG TABLET PO SCH ×2 (08:23→22:28)
[2019-07-28] MEDS: DOCUSATE SODIUM 100 MG CAPSULE PO SCH ×2 (08:23→22:28)
[2019-07-28] MEDS: PANTOPRAZOLE SODIUM 40 MG DR TABLET PO SCH (08:23)
[2019-07-28] MEDS: BENZONATATE 100 MG CAPSULE PO SCH ×3 (08:23→22:29)
[2019-07-28] MEDS: GuaiFENesin SR 600 MG ER TABLET PO SCH ×2 (08:24→22:29)
[2019-07-28] MEDS: HydrOXYzine PAMOATE 50 MG CAPSULE PO PRN ×2 (12:30→22:34)
[2019-07-28] MEDS: ONDANSETRON HCL 4 MG/2 ML VIAL IM PRN (12:33)
[2019-07-28] MEDS ORDERED: MONTELUKAST SODIUM 10 MG TABLET PO ONE (17:00)
[2019-07-28 20:09] VITALS: BP 118/74
[2019-07-28] MEDS: BUDESONIDE/FORMOTEROL FUMARATE 160-4.5 MCG/PUFF 6.9 GM INHALER IH SCH (21:00)
[2019-07-28] MEDS: TraZODone HCL 100 MG TABLET PO SCH (22:28)
[2019-07-29] MEDS: HEPARIN SODIUM,PORCINE 5,000 UNITS/ML VIAL SQ SCH ×2 (00:44→09:08)
[2019-07-29] MEDS: IPRATROPIUM BROMIDE 0.5 MG/2.5 ML NEB SOLUTION NEB SCH ×3 (02:00→13:26)
[2019-07-29] MEDS: ALBUTEROL SULFATE 2.5 MG/0.5 ML NEB SOLUTION NEB SCH ×3 (02:00→13:26)
[2019-07-29 05:03] VITALS: BP 102/70
[2019-07-29] MEDS: HYDROCODONE/ACETAMINOPHEN 5-325 MG TABLET PO PRN (05:48)
[2019-07-29] MEDS ORDERED: BUDE10.2 IH (08:18)
[2019-07-29] MEDS ORDERED: TIOT185 IH (08:19)
[2019-07-29] MEDS ORDERED: BENZ-51 PO (08:20)
[2019-07-29] MEDS ORDERED: GUAIF600 PO (08:20)
[2019-07-29] MEDS ORDERED: TRAZ-186 PO (08:21)
[2019-07-29] MEDS ORDERED: TRAZ150 PO (08:21)
[2019-07-29 08:39] VITALS: BP 107/83
[2019-07-29] MEDS ORDERED: MONTELUKAST SODIUM 10 MG TABLET PO SCH (09:00)
[2019-07-29] MEDS: BENZONATATE 100 MG CAPSULE PO SCH (09:09)
[2019-07-29] MEDS: OLANZapine 7.5 MG TABLET PO SCH (09:10)
[2019-07-29] MEDS: GuaiFENesin SR 600 MG ER TABLET PO SCH (09:10)
[2019-07-29] MEDS: PANTOPRAZOLE SODIUM 40 MG DR TABLET PO SCH (09:10)
[2019-07-29] MEDS: DOCUSATE SODIUM 100 MG CAPSULE PO SCH (09:10)
[2019-07-29] MEDS: BUDESONIDE/FORMOTEROL FUMARATE 160-4.5 MCG/PUFF 6.9 GM INHALER IH SCH (09:11)
[2019-07-29 09:14] LABS: BASOPHILS % (AUTO) 1.2 % (0.0-2.0); EOSINOPHILS % (AUTO) 1.4 % (1.0-6.0); HEMATOCRIT 38.5 % (41-53); LYMPHOCYTES # (AUTO) 1.7 K/uL (1.0-4.8); LYMPHOCYTES % (AUTO) 38.8 % (22.0-44.0); MEAN CORPUSCULAR HEMOGLOBIN 29.3 pg (26.0-34.0); MEAN CORPUSCULAR HGB CONC 33.7 G/dL (31.0-37.0); MEAN CORPUSCULAR VOLUME 87 fL (80-100); MONOCYTES # (AUTO) 0.5 K/uL (0.1-1.0); MONOCYTES % (AUTO) 11.8 % (2.0-9.0); NEUTROPHILS # (AUTO) 2.1 K/uL (1.8-7.7); NEUTROPHILS % (AUTO) 46.8 % (40.0-70.0); PLATELET COUNT (AUTO) 305 K/uL (150-450); RED BLOOD CELL COUNT(AUTO) 4.43 MIL/uL (4.50-5.90); RED CELL DISTRIBUTION WIDTH 14.6 % (11.5-14.5)
[2019-07-29 09:31] LABS: ALBUMIN 3.2 g/dL (3.4-5.0); BILIRUBIN,TOTAL 0.3 mg/dL (0.1-1.0); CALCIUM, TOTAL 8.7 mg/dL (8.8-10.5); CREATININE 1.37 mg/dL (0.60-1.30); POTASSIUM 3.9 mmol/L (3.5-5.1); TOTAL PROTEIN, SERUM 7.9 g/dL (6.4-8.2)
[2019-07-29] MEDS: ONDANSETRON HCL 4 MG/2 ML VIAL IM PRN (11:28)
[2019-07-29] MEDS ORDERED: METR500 PO ×2 (14:39→14:41)
[2019-07-29] MEDS ORDERED: CIPR-278 PO (14:45)
[2019-07-29 15:40] VITALS: BP 93/64
== END 2019-07-29 16:38 | DRG 871 ==
LOC: EMS 23:29 → 6S 07-15 03:00
PROVIDERS: ADMIT Internal Medicine; ATTEND Internal Medicine
DX: A41.9 Sepsis, unspecified organism (principal); J10.00 Influenza due to other identified influenza virus with unspecified type of pneumonia; N17.9 Acute kidney failure, unspecified; J44.0 Chronic obstructive pulmonary disease with (acute) lower respiratory infection; F15.90 Other stimulant use, unspecified, uncomplicated; F99 Mental disorder, not otherwise specified; F12.90 Cannabis use, unspecified, uncomplicated; F25.0 Schizoaffective disorder, bipolar type; Z88.1 Allergy status to other antibiotic agents; Z88.2 Allergy status to sulfonamides; Z88.0 Allergy status to penicillin; Z88.8 Allergy status to other drugs, medicaments and biological substances; Z90.49 Acquired absence of other specified parts of digestive tract; Z82.5 Family history of asthma and other chronic lower respiratory diseases; Z85.46 Personal history of malignant neoplasm of prostate; Z87.891 Personal history of nicotine dependence
CPT/HCPCS: 71250; 72192; 74150; 74177; 83605; 84132; 84145; 86171; 86635; 87040; 87070; 87205; 87804; 93306; 94640; J1630; J1644; J1956; J2060; J2270; J2405; J2765; J7030; J7040; J7050